=== PATIENT | male | born 1950 | race Caucasian/White ===

== ENCOUNTER 2017-08-17 22:08 | Emergency (ER) | payer OTHER, MEDICARE ==
[2017-08-17 22:26] VITALS: BP 98/66; PULSE 79; RESP 16; TEMP 97.5; O2SAT 93
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
[2017-08-17] MEDS ORDERED: IBUPROFEN 800 MG TAB PO ONE (22:52)
[2017-08-17] MEDS ORDERED: TDAP ADULT 0.5 ML INJ (BOOSTRIX) IM ONE (22:52)
== END 2017-08-17 23:25 | disposition home or self-care (01) ==
PROC: 0HQFXZZ Repair Right Hand Skin, External Approach (ICD-10-PCS; principal; 2017-08-17)
DX: S61.210A Laceration without foreign body of right index finger without damage to nail, initial encounter (principal); Z23 Encounter for immunization; W22.8XXA Striking against or struck by other objects, initial encounter; Y99.8 Other external cause status
CPT/HCPCS: 12002; 73140; 90471; 90715; 99283; L3925